=== PATIENT | male | born 1960 | race Caucasian/White ===

== ENCOUNTER 2017-11-22 15:07 | Observation (INO) | payer OTHER ==
[2017-11-22 15:28] LABS: #Basophils 0.1 thou/uL (0.0-0.2); #Eosinphils 0.2 thou/uL (0.0-0.7); #Lymphocytes 3.4 thou/uL (1.20-3.40); #Monocytes 0.9 thou/uL (0.11-0.59); #Neutrophils 3.9 thou/uL (1.40-6.50); %Basophils 0.9 % (0.0-1.0); %Eosinophils 2.3 % (0.0-10.0); %Lymphocytes 39.8 % (21.0-51.0); %Monocytes 10.5 % (0.0-10.0); %Neutrophils 46.5 % (42.0-75.0); Hemoglobin 16.6 g/dL (14.0-18.0); Mean Corpuscular HGB CONC 34.5 g/dL (32.0-36.0); Mean Corpuscular Hemoglobin 30.2 pg (27.0-31.0); Mean Corpuscular Volume 87.4 fL (78.0-98.0); Mean Platelet Volume 6.9 fL (7.4-10.4); Platelet Count 148 thou/uL (130-400); RBC Distribution Width 12.6 % (11.5-14.5); Red Blood Cell (RBC) Count 5.51 mill/uL (4.70-6.10); White Blood Cell (WBC) Count 8.4 thou/uL (4.8-10.8)
[2017-11-22] MEDS ORDERED: Ondansetron ODT 4 MG TAB ONE (15:37)
--- NOTE | 2017-11-22 15:38 | RAD ---
SINGLE VIEW OF THE CHEST: Comparison: 06-29-12 History: Chest pain. FINDINGS: Single view of the chest shows a normal sized cardiomediastinal silhouette. There is no evidence of c onsolidation, mass, or pleural effusion. The bones are unremarkable. IMPRESSION: No evidence of acute cardiopulmonary disease. POS: [facility]
[2017-11-22 15:54] LABS: Troponin I 0.026 ng/mL (< 0.028)
[2017-11-22 16:01] LABS: CKMB 34.8 ng/mL (0-6.6)
[2017-11-22 16:12] LABS: ALT (SGPT) 63 U/L (8-55); AST (SGOT) 70 U/L (5-34); Albumin 4.8 g/dL (3.5-5.0); Alkaline Phosphatase 63 U/L (40-150); Anion Gap 17 mmol/L (10-20); BUN (Urea Nitrogen) 15 mg/dL (8.4-25.7); Bilirubin, Total 1.8 mg/dL (0.2-1.2); Calc. Creatinine Clearance 0 mL/min (70-130); Calcium 10.3 mg/dL (7.8-10.44); Carbon Dioxide 23 mmol/L (22-29); Chloride 111 mmol/L (98-107); Estimated GFR-MDRD 51; Globulin 3.1 g/dL (2.4-3.5); Glucose 93 mg/dL (70-105); Potassium 3.6 mmol/L (3.5-5.1); Protein, Total 7.9 g/dL (6.0-8.3); Sodium 147 mmol/L (136-145)
[2017-11-22 16:41] LABS: CK (CPK) 2153 U/L (30-200)
[2017-11-22] MEDS ORDERED: cloNIDine 0.1 MG TAB ONE (16:52)
--- NOTE | 2017-11-22 17:18 | CT ---
CT OF THE BRAIN WITHOUT CONTRAST: 11/22/17 INDICATION: History of syncope and extreme diaphoresis. Patient is having pressure in the head and in the chest. COMPARISON: None. FINDINGS: No acute infract, hemorrhage, or hydrocephalus is present. The septum pellucidum and third ventricle are midline. The skull and extracranial soft tissues appear within normal limits. Mastoid air cells a nd visualized paranasal sinuses and clear. IMPRESSION: No acute intracranial abnormality. POS: [facility]
[2017-11-22 19:16] VITALS: BMI 34.1
[2017-11-22] MEDS ORDERED: Acetaminophen 500 MG TAB PO PRN (19:18)
[2017-11-22] MEDS ORDERED: Ondansetron ODT 4 MG TAB PO PRN (19:18)
[2017-11-22] MEDS ORDERED: cloNIDine 0.1 MG TAB PO PRN (19:18)
[2017-11-22] MEDS ORDERED: Ondansetron HCl/PF 4 MG/2 ML Vial IVP PRN (19:18)
[2017-11-22] MEDS ORDERED: hydrALAZINE 20 MG/ML VIAL SLOW IVP PRN (19:18)
[2017-11-22] MEDS: Sodium Chloride 0.9% 1,000 ML IV SCH (20:22)
[2017-11-22] MEDS ORDERED: Famotidine 20 MG TAB PO SCH (21:00)
[2017-11-22 22:10] LABS: Troponin I 0.012 ng/mL (< 0.028)
--- NOTE | 2017-11-22 22:32 | ULT ---
ULTRASOUND DOPPLER DUPLEX CAROTID: 11/22/17 HISTORY: 57-year-old male status post near syncope. TECHNIQUE: Sethi scale, color flow, and spectral analysis of major arteries in the neck. FINDINGS: There is intimal thickening in the bilateral common carotid arteries extending into the carotid bulbs bilaterally. Small calcified and noncalcified plaque at the right carotid bulb at the origin of the right internal carotid artery. A greater degree of mild calcified and noncalcified plaque at the cont ralateral left carotid bulb including origin of left internal carotid. Highest peak systolic velocities in the internal carotid arteries are 80 cm/s on the right and 65 cm/ s on the left. ICA/CCA ratios are 0.6 on the right and 0.5 on the left. Vertebral artery flow is antegrade bilaterally. IMPRESSION: 1. Mild atherosclerotic plaque of the origins of the bilateral internal carotid arteries. 2. No hemodynamically significant stenosis. POS: [facility]
--- NOTE | 2017-11-23 00:45 | HP ---
DATE OF ADMISSION: 11/22/2017 CHIEF COMPLAINT: Dizziness. HISTORY OF PRESENT ILLNESS: This is a 57-year-old male who presents to [facility] Emergency Department after apparently experiencing an episode of near syncope. The patient states t hat he was driving with his son after apparently laying shaunna at a construction site. The patient states that he suddenly became lightheaded, feeling strange, and pulled over to the side of the road . The patient states he was profusely sweating, appeared pale to the son, and felt like he was going to pass out. The patient denied actual loss of consciousness or blacking out. The patient denied a ny specific chest pain, fever, chills, recent trauma, injury, or exposure to extreme heat. The patie nt states he was working on a construction site laying shaunna; however, the building he was in was air-conditioned. 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 The patient apparently had similar episode occurred in late 10/2017, which took him several hours to recover from. He felt lightheaded, ill, and was noted pale by family members; lying down and taking a nap for recovery. The patient did admit that this episode had some shortness of breath and nausea associated with it. The patient denied any left arm or jaw discomfort. The nirali stallings also reports some headache within the last 24 hours, but denied unilateral weakness, visual sachin nges, recent head injury, alcohol intake, or illicit drug use. The patient states he underwent cardi ac stress testing approximately 10 years prior to this evaluation and the test was negative. The pat ient states he recently underwent general evaluation by his primary care provider and was noted with hyperlipidemia with recommendations for overall weight loss to lower his cholesterol. The patient do es admit to taking Crestor over the last 3 years, as well as Flonase and occasional tramadol for musc uloskeletal pain. The patient denies any recent travel history, known sick contacts, diarrhea, or he matemesis. In the emergency room, the patient underwent evaluation including CT imaging of the brain showing no acute intracranial process. Portable chest x-ray was performed showing no acute process. Screening metabolic survey showed evidence of mild acute kidney injury and dehydration, as well as elevated total CK over 1999. Initial troponin was negative and screening EKG showed no acute process . PAST MEDICAL HISTORY: 1. Elevated blood pressure without diagnosis of hypertension. 2. Seasonal allergies. 3. Hyperlipidemia. 4. Gastroesophageal reflux. PAST SURGICAL HISTORY: 1. Status post lumbar disk removal. 2. Status post left knee surgery. CURRENT MEDICATIONS: 1. Crestor 40 mg 1 tab p.o. daily. 2. Tramadol 50 mg p.r.n. 3. Flonase 1 spray in each naris b.i.d. ALLERGIES: No known drug allergies. FAMILY HISTORY: One brother with a history of myocardial infarction. Positive for hypertension. SOCIAL HISTORY: The patient is and resides in the [facility] area. Accompanied b y his in the hospital. No tobacco. Occasional alcohol use. No illicit drug use. Functional o f all activities of daily living. Works in construction. REVIEW OF SYSTEMS: The following complete review of systems was negative, unless otherwise mentioned in the HPI or below: Constitutional: Weight loss or gain, abil ity to conduct usual activities. Skin: Rash, itching. Eyes: Double vision, pain. ENT/Mouth: Nos e bleeding, neck stiffness, pain, tenderness. Cardiovascular: Palpitations, dyspnea on exertion, or thopnea. Respiratory: Shortness of breath, wheezing, cough, hemoptysis, fever, or night sweats. Ga strointestinal: Poor appetite, abdominal pain, heartburn, nausea, vomiting, constipation, or diarrhea. Genitourinary: Urgency, frequency, dysuria, nocturia. Musculoskeletal: Pain, swelling. Neurologic/Psychiatric: Anxiety, depression. Allergy/Immunologi c: Skin rash, bleeding tendency. PHYSICAL EXAMINATION: VITAL SIGNS: On admission, blood pressure 187/82, pulse 60, respiratory rate 22, temperature 98 degr ees Fahrenheit, O2 saturation 100% on room air. GENERAL APPEARANCE: This is a 57-year-old male, alert and oriented x3, pleasant, conversan t, and in no acute distress. HEENT: Pupils are equal, round, and reactive to light and accommodation. Extraocular muscles are in tact. No scleral icterus. No conjunctival injection. Nares patent. OP is clear. Oral mucosa dry. NECK: Supple. No cervical adenopathy, no thyromegaly, no carotid bruits, no JVD appreciated. Cervi dean spine with full active and passive range of motion. No meningeal signs appreciated. CHEST: Lungs are clear to auscultation bilaterally. CARDIOVASCULAR: S1, S2 without noted murmur, rub, or gallop. ABDOMEN: Rounded, soft, nontender, nondistended. Bowel sounds are positive in all four quadrants. There is no hepatosplenomegaly. No abdominal bruits. No rebound or guarding appreciated. EXTREMITIES: Warm and dry with fair turgor. No clubbing, cyanosis, or asymmetric edema appreciated. Pulses palpable distally at the dorsalis pedis, posterior tibial, and popliteal arteries bilaterall y. Capillary refill is less than 2 seconds. NEUROLOGIC: Cranial nerves II-XII are grossly intact. No focal or lateralizing signs appreciated. PERTINENT LABORATORY AND X-RAY FINDINGS: Sodium 147, potassium 3.6, chloride 111, CO2 of 23, BUN 15, creatinine 1.42. Estimated GFR is 51, calcium 10.3, total bilirubin 1.8, AST 70, ALT of 63. Total CK 2153, troponin I 0.026, CK-MB 34.8, albumin 4.8. CBC within normal limits. Portable chest x-ray dated 11/22/2017 showed no acute cardiopulmonary process. CT of the brain witho ut contrast dated 11/22/2017 showed no acute intracranial process. EKG dated 11/22/2017 by jolie hennessy retation shows sinus mechanism, heart rates in the 80s. Normal R-wave progression noted in the preco rdial leads. Normal axis. No acute ST-T wave changes appreciated. ASSESSMENT AND PLAN: 1. Near syncope. The patient will be observed on the telemetry unit. Suspect secondarily to volume depletion and dehydration. We will continue general workup to include a cardiac rule out. See george albarado for details. Continue intravenous normal saline at 125 mL per hour. Check orthostatic vital signs q.4 hours x2. Check carotid Doppler study to rule out focal stenosis. 2. Acute kidney injury. Suspect secondary to volume depletion. Continue intravenous normal saline as outlined previously. Avoid nephrotoxic agent and contrast media. Repeat creatinine in the a.m. 3. Rhabdomyolysis. Suspect statin induced due to Crestor. Continue intravenous fluids and repeat t otal CK level in the a.m. 4. Elevated blood pressure. The patient without formal diagnosis of hypertension. We will continue serial blood pressure monitoring. Clonidine and hydralazine p.r.n. 5. Transaminitis. Suspect statin induced as stated previously. Repeat LFTs and hold Crestor. 6. Prophylaxis. Sequential compression devices while in bed. Pepcid 20 mg p.o. b.i.d. 7. Code status is FULL. Surrogate medical decision maker is patient's spouse.
[2017-11-23] MEDS: Sodium Chloride 0.9% 1,000 ML IV SCH (03:48)
[2017-11-23 06:03] LABS: ALT (SGPT) 45 U/L (8-55); AST (SGOT) 42 U/L (5-34); Albumin 3.7 g/dL (3.5-5.0); Alkaline Phosphatase 49 U/L (40-150); Anion Gap 11 mmol/L (10-20); BUN (Urea Nitrogen) 14 mg/dL (8.4-25.7); Bilirubin, Total 1.2 mg/dL (0.2-1.2); CK (CPK) 1111 U/L (30-200); Calc. Creatinine Clearance 136 mL/min (70-130); Calcium 8.6 mg/dL (7.8-10.44); Carbon Dioxide 24 mmol/L (22-29); Chloride 110 mmol/L (98-107); Estimated GFR-MDRD 84; Glucose 103 mg/dL (70-105); Potassium 3.9 mmol/L (3.5-5.1); Protein, Total 5.7 g/dL (6.0-8.3); Sodium 141 mmol/L (136-145)
[2017-11-23 06:32] LABS: Band 1 % (5-11); Eosinophils 1 % (0-10); Hemoglobin 14.4 g/dL (14.0-18.0); Lymphocytes 23 % (21-51); MDiff Complete? YES; Mean Corpuscular HGB CONC 35.4 g/dL (32.0-36.0); Mean Corpuscular Hemoglobin 31.4 pg (27.0-31.0); Mean Corpuscular Volume 88.7 fL (78.0-98.0); Mean Platelet Volume 7.3 fL (7.4-10.4); Monocytes 8 % (0-10); Neutrophil 55 % (42-75); PLT Morphology Comment Appears Decreased; Platelet Count 99 thou/uL (130-400); RBC Distribution Width 12.6 % (11.5-14.5); RBC Morphology Normal; Reactive Lymphocytes 12 % (0-10); Red Blood Cell (RBC) Count 4.57 mill/uL (4.70-6.10); White Blood Cell (WBC) Count 4.7 thou/uL (4.8-10.8)
[2017-11-23 08:10] VITALS: BP 122/76; TEMP 98.9
--- NOTE | 2017-11-23 11:33 | NM ---
NUCLEAR MEDICINE CARDIAC PERFUSION EXAMINATION WITH EJECTION FRACTION: COMPARISON: 06/30/12. HISTORY: A 51-year-old male with hypertension and family history of coronary artery disease. TECHNIQUE: A single-day nuclear medicine cardiac perfusion examination was performed. Rest images were obtained using 9.8 mCi of Technetium 99m sestamibi. Stress images were obtained using 29.4 mCi of Technetium 99m sestamibi and adenosine. FINDINGS: Tomographic images showed no fixed or reversible perfusion defects. Gated images show normal wall mo tion with an ejection fraction of 68%. EDV is 0.3 mL. TID is 1.1. IMPRESSION: No evidence of ischemia. POS: [facility]
--- NOTE | 2017-11-23 21:45 | DIS ---
DATE OF ADMISSION: 11/22/2017 DATE OF DISCHARGE: 11/23/2017 DISCHARGE DIAGNOSES: 1. Near syncope secondary to dehydration, resolved. 2. Acute kidney injury secondary to volume depletion/dehydration, resolving. 3. Rhabdomyolysis secondary to Crestor/dehydration, improved. 4. Transaminitis statin induced. CONSULTATIONS: None. PERTINENT LAB AND X-RAY FINDINGS: Sodium ranged between 141-147. Creatinine ranged between 0.93-1.4 2. Estimated GFR ranged between 51-84. Calcium ranged between 8.6-10.3. Total bilirubin ranged bet ween 1.2-1.8. AST ranged between 42-70. ALT ranged between 45-63. Total CK ranged between 1111-215 3. Troponin I negative x3. CBC within normal limits. Portable chest x-ray dated 11/22/2017 showed no acute cardiopulmonary process. CT of the brain without contrast dated 11/22/2017 showed no acute intracranial process. Carotid Doppler study dated 11/22/2017 showed no hemodynamically significant s tenosis. Cardiolite stress test dated 11/23/2017 showed no evidence of reversible or fixed ischemia with calculated ejection fraction of 68%. HOSPITAL COURSE: The patient was observed on the telemetry unit after initially presenting with dizz iness, vertigo and near syncope. The patient underwent extensive evaluation including neuro imaging showing no acute intracranial process. Metabolic screening was revealing for evidence of acute kidne y injury in the context of dehydration and ongoing use of Crestor. The patient was given intravenous fluids with overall improvement in symptomatology. The patient underwent cardiac stress testing to rule out a cardiac etiology of presentation with Cardiolite stress test showing no evidence for rever sible or fixed ischemia with calculated ejection fraction of 68%. Telemetry monitoring showed no hilario dence of acute arrhythmia or dysrhythmia, and the patient overall remained clinically stable througho ut the hospital course. Current recommendations are to discontinue Crestor and statin agents due to rhabdomyolysis and transaminitis with discussions with his primary care provider after discharge. Ov satish, the patient remained clinically stable, tolerating regular oral intake, ambulating without ass istance or difficulty and voiding appropriately. I have examined the patient's at the time of discha rge and discussed pertinent laboratory findings and follow up instructions. The patient verbalized u nderstanding and agreement and will discharge home on 11/23/2017. DISCHARGE MEDICATIONS: 1. Enteric-coated aspirin 81 mg 1 tab p.o. daily. 2. Zyrtec 10 mg one tab p.o. daily. 3. Vitamin D3 1000 units p.o. daily. 4. [place] 3 fatty acids 1000 mg p.o. daily. 5. Flonase nasal spray 1 spray in each naris daily. 6. Multivitamin 1 tab p.o. daily. SPECIAL INSTRUCTIONS: Recommend repeat of liver function tests and total CK level at first followup visit. FOLLOWUP: The patient will follow up with Dr. Kevin Burton within 7 days of discharge. CONDITION ON DISCHARGE: Stable. ACTIVITY: ad zoe. DIET: Heart healthy. CODE STATUS: FULL. DISPOSITION: Home on 11/23/2017.
--- NOTE | 2017-11-30 12:50 | EKG ---
Test Reason : Blood Pressure : / mmHG Vent. Rate : 068 BPM Atrial Rate : 068 BPM P-R Int : 172 ms QRS Dur : 102 ms QT Int : 412 ms P-R-T Axes : 054 -28 042 degrees QTc Int : 438 ms Sinus rhythm with Premature atrial complexes with Abberant conduction Otherwise normal ECG Confirmed by JON HESS ([id number]), stove polisher ED BLOCK ([id number]) on 11/30/2017 12:50:09 PM Referred By: Confirmed By:JON HESS
--- NOTE | 2017-11-30 12:50 | EKG ---
Test Reason : CHEST PAIN Blood Pressure : / mmHG Vent. Rate : 087 BPM Atrial Rate : 087 BPM P-R Int : 162 ms QRS Dur : 102 ms QT Int : 376 ms P-R-T Axes : 060 -25 047 degrees QTc Int : 452 ms Sinus rhythm with sinus arrhythmia Possible Left atrial enlargement Borderline ECG Confirmed by JON HESS ([id number]), industrial editor ED BLOCK ([id number]) on 11/30/2017 12:50:00 PM Referred By: KEIRY HESS Confirmed By:JON HESS
== END 2017-11-23 12:22 | disposition home or self-care (01) ==
LOC: ERS 15:07 → 2SW 19:04
PROVIDERS: ADMIT Family Medicine; ATTEND Family Medicine
DX: E86.0 Dehydration (principal); N17.9 Acute kidney failure, unspecified; R55 Syncope and collapse; T46.6X5A Adverse effect of antihyperlipidemic and antiarteriosclerotic drugs, initial encounter; M62.82 Rhabdomyolysis; R79.89 Other specified abnormal findings of blood chemistry; K21.9 Gastro-esophageal reflux disease without esophagitis; E78.5 Hyperlipidemia, unspecified; J30.2 Other seasonal allergic rhinitis; R03.0 Elevated blood-pressure reading, without diagnosis of hypertension; Z79.82 Long term (current) use of aspirin; Z79.51 Long term (current) use of inhaled steroids; Z79.899 Other long term (current) drug therapy
CPT/HCPCS: 36415; 70450; 71045; 78452; 80053; 82550; 82553; 84484; 85007; 85025; 85027; 93005; 93017; 93880; 94760; 96360; 96361; A9500; G0378; J0153; Q0162

== ENCOUNTER 2020-01-04 08:35 | Outpatient (CLI) | payer OTHER ==
--- NOTE | 2020-01-04 10:16 | NM ---
EXAM: NM Liver Spleen Scan STANDARD PROVIDED CLINICAL HISTORY: Pancreatic mass seen on CT abdomen on 12/13/2019. Differential considerations for the mass included pa ncreatic neoplasm versus apparent splenic tissue. Liver spleen scan was recommended for further evaluation. COMPARISON: CTA abdomen on 12/13/2019 FINDINGS: There is normal uptake and distribution of radiotracer seen within the liver and spleen. No activity is seen in the expected location of the pancreatic tail to suggest that the lesion noted in the pancreatic tail on prior CT examination is related to aberrant splenic tissue. The lesion within the pancreatic tail is likely related to pancreatic neoplasm. IMPRESSION: 1. No activity is seen within the expected location of the tail of the pancreas to correspond to the mass lesion noted within the pancreatic tail on prior CT exam. 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
== END 2020-01-04 08:36 | disposition home or self-care (01) ==
LOC: NM 08:35
PROVIDERS: ATTEND Family Medicine
DX: K86.89 Other specified diseases of pancreas (principal)
CPT/HCPCS: 78215; A9541